=== PATIENT | male | born 1960 | race Caucasian/White ===

== ENCOUNTER 2018-07-07 07:15 | Emergency (ER) | payer BC ==
[2018-07-07 07:26] VITALS: BP 154/83; PULSE 67; TEMP 98.6; BMI 29.0
--- NOTE | 2018-07-07 07:35 | PDOC ---
History of Present Illness - General Chief Complaint: Injury Stated Complaint: RT ANKLE INJURY Time Seen by Provider: 07/07/18 07:18 History Source: Patient Exam Limitations: No Limitations - History of Present Illness Initial Comments: 07/07/18 07:38 57y M hx of HTN (untreated) presents with complaint of R ankle pain since yesterday. The patient notes he stepped hard as he was coming down the stairs on his R foot (on his heel) on tuesday - states he was fine afterwards however on the ankle swelled up significantly and caused moderate pain. He took motrin with some relief. Today the swelling went down but still had mild pain on the superior/lateral aspect of his foot so came for evaluation. denies any other pain or injuries including in his knee, hip. no head injury or fall. Past History - Past Medical History Allergies/Adverse Reactions: Allergies Allergy/AdvReac Type Severity Reaction Status Date / Time No Known Allergies Allergy Verified 07/07/18 07:21 Home Medications: Ambulatory Orders NK [No Known Home Medication] 07/07/18 COPD: No - Suicide/Smoking/Psychosocial Hx Smoking History: Never smoked Have you smoked in the past 12 months: No Information on smoking cessation initiated: No Hx Alcohol Use: No Drug/Substance Use Hx: No Substance Use Type: None Review of Systems - Review of Systems Able to Perform ROS?: Yes Comments:: 07/07/18 07:44 Musculskelatal - +R ankle pain no reported back pain, joint swelling skin - no reported bruising, erythema, rash neurological: no reported headache, numbness, focal weakness, tingling, ataxia, hematologic: no reported easy bruising, easy bleeding *Physical Exam - Vital Signs Last Vital Signs Temp Pulse Resp BP Pulse Ox 98.6 F 67 20 154/83 98 07/07/18 07:15 07/07/18 07:15 07/07/18 07:15 07/07/18 07:15 07/07/18 07:15 - Physical Exam Comments: 07/07/18 07:45 GENERAL: The patient is awake, alert, and fully oriented, Nontoxic - in no acute distress. HEAD: Normocephalic, atraumatic. EXTREMITIES: normal ROM of R knee, hip, ankle. Mild discomfort on the anterior/ superior/lateral aspect of foot, no ttp at the maleoli or at 5th metatarsal. mild edema on lateral aspect of ankle NEUROLOGICAL: senation intact, dp pulses symmetric SKIN: Warm, Dry, normal turgor, no bruising noted *DC/Admit/Observation/Transfer Diagnosis at time of Disposition: Ankle pain, right Qualifiers: Chronicity: acute Qualified Code(s): M25.571 - Pain in right ankle and joints of right foot - Discharge Dispostion Disposition: HOME Condition at time of disposition: Stable Decision to Admit order: No - Referrals Referrals: Félix Corona MD [Staff Physician] - - Patient Instructions Printed Discharge Instructions: DI for Ankle Pain Additional Instructions: Return to the emergency department immediately with ANY new, persistent or worsening symptoms. Keep your foot elevated to minimize swelling Take Motrin or Tylenol for pain Rest You MUST call and follow up with your doctor within 4-5 days for further evaluation of your symptoms. Results were discussed with you. Please make sure your doctor reviews the results of your emergency evaluation. If you had any xrays during your visit, it was read preliminarily by myself, a Radiologist will review it and if there are any additional findings we will call you. Print Language: ZAMBIAN - Post Discharge Activity
== END 2018-07-07 08:34 | disposition home or self-care (01) ==
LOC: FER 07:15
DX: M25.571 Pain in right ankle and joints of right foot (principal)
CPT/HCPCS: 73610-TC-RT-FY; 73630-TC-RT-FY; 99281-25

== ENCOUNTER 2021-06-15 04:46 | Day surgery (SDC) | payer BC ==
[2021-06-12 15:17] VITALS: BMI 33.0
[2021-06-15 11:25] VITALS: PULSE 59
[2021-06-15 14:20] VITALS: BP 150/76; TEMP 97.1
== END 2021-06-15 12:20 | disposition home or self-care (01) ==
LOC: JASU-ENDO 04:46
PROVIDERS: ATTEND Internal Medicine Gastroenterology
PROC: 0DBN8ZX Excision of Sigmoid Colon, Via Natural or Artificial Opening Endoscopic, Diagnostic (ICD-10-PCS; 2021-06-15)
PROC: 0DBP8ZX Excision of Rectum, Via Natural or Artificial Opening Endoscopic, Diagnostic (ICD-10-PCS; principal; 2021-06-15 10:00)
DX: Z12.11 Encounter for screening for malignant neoplasm of colon (principal); K62.1 Rectal polyp; D12.5 Benign neoplasm of sigmoid colon; K57.30 Diverticulosis of large intestine without perforation or abscess without bleeding
CPT/HCPCS: 88305-TC